=== PATIENT | female | born 1985 | race Caucasian/White ===

== ENCOUNTER → 2016-11-19 | Day surgery (SDC) | payer OTHER ==
[~2016-11-19] MED LIST: LIDOCAINE 1%/EPI 1:100,000 20 ML VIAL. INJ ONE; LIDOCAINE 1%/EPI 1:100,000 20 ML VIAL. ONE
[2016-11-19 07:24] VITALS: BP 99/66
--- NOTE | 2016-11-19 10:42 | PDOC ---
BRIEF OPERATIVE NOTE Pre-Op Diagnosis back cyst excision of 2.4 cm back cyst opal andrew local ebl <5 navdeep well dc home specimen cyst ANDIE ANDREW MD Nov 19, 2016 10:42
--- NOTE | 2016-11-19 12:57 | OP ---
DATE OF SURGERY: 11/19/2016 PREOPERATIVE DIAGNOSIS: Back cyst. POSTOPERATIVE DIAGNOSIS: Back cyst. PROCEDURE: Excision of 2.4 cm back cyst. SURGEON: Andie Andrew M.D. ANESTHESIA: Local. ESTIMATED BLOOD LOSS: Less than 5 mL. INTRAVENOUS FLUIDS: None. SPECIMEN: Back cyst. INDICATIONS: The patient is a 31-year-old female with an enlarging tender back cyst that she would like to have excised. DESCRIPTION OF PROCEDURE: After informed consent was obtained, the patient was in the minor operating room. She was placed on her left side. She was prepped and draped in usual sterile fashion. This site was confirmed with her. The area was injected with local anesthetic. Skin incision was made and then sharply, the cyst was excised in its entirety. The cyst was measured, it measured 2.4 cm. The cyst appeared to have ruptured and the surrounding inflamed tissue was included with the excision. The area was inspected and it was hemostatic. It was then irrigated and the wound was closed in layers. A 3-0 Vicryl was used in a running fashion for the deep layer. Skin was closed with 4-0 Monocryl in subcuticular fashion. Sterile dressings were placed. She tolerated the procedure well. There were no apparent complications. She was then discharged to home in stable condition. ANDIE ANDREW MD DR: JALEN/parish JOB#: [id number] / [id number] ERICK Steiner MD
--- NOTE | 2016-11-21 14:45 | PATHOLOGY ---
PATHOLOGY REPORT * * * * * * * * FINAL DIAGNOSIS: Fibroadipose tissue, back cyst: - Granulation tissue showing marked acute inflammation, chronic inflammation, and foreign body giant cell reaction to keratinaceous material, consistent with ruptured epidermal inclusion cyst. COMMENT: There is no evidence of malignancy. (JPM:mgr; 11/21/2016) REPORT ELECTRONICALLY SIGNED BY: Arjun Bermudez M.D. DATE/TIME: 11/21/2016 14:44 * * * * * * * * GROSS PATHOLOGY: The specimen is received in formalin, labeled "Kathryn Sprague, back cyst". Received is an ovoid segment of pale linder to light brown soft tissue admixed with fibroadipose tissue measuring 2.7 x 1.8 x 0.8 cm in greatest dimensions. The specimen is inked. Sectioning reveals pale linder to light brown to pale yellow cut surfaces. The specimen is bisected and submitted representatively in cassette A1. (DAC; 11/20/2016) INITIAL CPT CODE(S): A; 24773 Professional services performed [place] [facility] [address] Technical services performed by [facility] at [address] [place] [address] [address] [address]. SPECIMEN(S) RECEIVED: A.Back cyst CLINICAL HISTORY: Excision back cyst PATIENT: KATHRYN SPRAGUE /AGE: 205/22/1985 (Age: 31) PATIENT #: [id number] ALT CASE #: SPECIMEN COLLECTION DATE: 11/19/2016 SPECIMEN RECEIVED DATE: 11/19/2016 [facility] - [address] [place] [address] - PHONE: [phone] * * * END OF REPORT * * *
== END | disposition home or self-care (01) ==
LOC: SURG 06:57
PROVIDERS: ATTEND Surgery
DX: L72.0 Epidermal cyst (principal)
CPT/HCPCS: 11403; 12031; J3490